=== PATIENT | female | born 2005 | race Caucasian/White ===

== ENCOUNTER 2024-05-20 21:59 | Emergency (ER) | payer SELFPAY ==
[2024-05-20 22:09] VITALS: PULSE 100; RESP 16; O2SAT 100
== END 2024-05-20 23:01 | disposition left against medical advice (07) ==
LOC: ER 21:59
DX: R05.9 Cough, unspecified (principal); Z53.21 Procedure and treatment not carried out due to patient leaving prior to being seen by health care provider